=== PATIENT | male | born 1985 | race Caucasian/White ===

== ENCOUNTER 2017-05-28 20:03 | Inpatient (IN) | payer MEDICAID ==
[~2017-05-28] VITALS: Ht 167.6 cm; Wt 76.7 kg
[2017-05-28 20:17] VITALS: BP 155/95
--- NOTE | 2017-05-28 20:20 | NUR ---
32/M CAME IN W C/O EPIGASTRIC PAIN X 1 HOUR, NONRADIAITING,STATES PAIN STARTED AFTER A MEAL. BS ACTIVE X 4, ABD SOFT AND ROUND, +TENDERNESS TO EPIGASTRIC. REPORTS NAUSEA, DENIES VOMITING, FEVER/CHILLS. 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
[2017-05-28] MEDS ORDERED: ONDANSETRON 4 MG/2 ML VIAL IVP ONE (20:40)
[2017-05-28] MEDS ORDERED: NACL 0.9% 2,000 ML IV ONE (20:40)
[2017-05-28] MEDS ORDERED: MORPHINE SULFATE 4 MG/ML SYR IVP ONE (20:40)
[2017-05-28 21:06] LABS: BASOPHILS # (AUTO) 0.4 K/uL (0.00-0.22); EOSINOPHILS # (AUTO) 0.2 K/uL (0-0.4); HEMATOCRIT 45.6 % (36-52); HEMOGLOBIN 15.6 g/dL (12.0-18.0); LYMPHOCYTES # (AUTO) 2.3 K/uL (2.0-11.5); MEAN CORPUSCULAR HEMOGLOBIN 29 pg (27-31); MEAN CORPUSCULAR HGB CONC 34 g/dL (33-37); MEAN CORPUSCULAR VOLUME 84 fL (80-94); MONOCYTES # (AUTO) 1.1 K/uL (0.8-1.0); PLATELET COUNT (AUTO) 263 K/uL (140-450); RED BLOOD CELL COUNT(AUTO) 5.43 MIL/uL (4.20-6.10); RED CELL DISTRIBUTION WIDTH 11.8 % (11.6-13.7)
[2017-05-28] MEDS ORDERED: HYDROmorphone PFS 2 MG/ML SYR IVP ONE ×3 (21:25→23:30)
[2017-05-28] MEDS ORDERED: FAMOTIDINE 20 MG/2 ML VIAL IVP ONE (21:25)
[2017-05-28 21:28] LABS: ANION GAP 14.2 (8-16); CARBON DIOXIDE 28.5 mmol/L (21-32); POTASSIUM 3.7 mmol/L (3.5-5.1)
[2017-05-28 21:29] LABS: CREATININE 1.1 mg/dL (0.7-1.3); TOTAL BILIRUBIN 0.3 mg/dL (0.0-1.0)
[2017-05-28] MEDS ORDERED: NACL 0.9% 1,000 ML IV ONE (23:00)
[2017-05-28] MEDS ORDERED: cefTRIAXone 1,000 MG VIAL ONE (23:04)
[2017-05-28 23:07] LABS: APPEARANCE,URINE CLEAR (CLEAR); BILIRUBIN,URINE NEGATIVE (NEGATIVE); BLOOD, URINE NEGATIVE (NEGATIVE); COLOR,URINE YELLOW (YELLOW); LEUKOCYTE ESTERASE ,URINE NEGATIVE (NEGATIVE); NITRITE, URINE NEGATIVE (NEGATIVE); UGLUCOSE NEGATIVE (NEGATIVE)
[2017-05-28 23:19] LABS: RBC,URINE 0-5 (RARE) /HPF (0-5); WBC,URINE NONE SEEN /HPF (0-5)
--- NOTE | 2017-05-28 23:29 | NUR ---
Ultrasound at bedside.
[2017-05-28] MEDS: NACL 0.9% 1,000 ML IV SCH (23:33)
[2017-05-28] MEDS ORDERED: DOCUSATE SODIUM 100 MG GELCAP PO PRN (23:35)
[2017-05-28] MEDS ORDERED: ACETAMINOPHEN 325 MG TAB PO PRN (23:35)
[2017-05-28] MEDS ORDERED: ONDANSETRON 4 MG/2 ML VIAL IM/IVP PRN (23:35)
[2017-05-28] MEDS ORDERED: HYDROcodone/APAP 7.5/325 MG 1 TAB PO PRN (23:35)
[2017-05-28] MEDS ORDERED: ZOLPIDEM 5 MG TAB PO PRN (23:35)
[2017-05-28] MEDS ORDERED: MORPHINE SULFATE 2 MG/ML SYR IVP PRN (23:35)
[2017-05-28] MEDS ORDERED: LORazepam 0.5 MG TAB PO PRN (23:35)
--- NOTE | 2017-05-28 23:50 | NUR ---
Patient will be admitted to care of SYEDA DIANA. Admited to TELE. Will go to [id number]. Belongings list completed. BEDSIDE Report to ADELINE DIAZ. IV INFUSING.
[2017-05-28 23:56] VITALS: BP 131/80
--- NOTE | 2017-05-28 23:56 | NUR ---
RECEIVED PATIENT FROM ER. PATIENT A&OX4. PATIENT STATES PAIN IN UPPER EPIGASTRIC AREA. PATIENT PREVIOUSLY MEDICATED IN ER. WILL RE-ASSESS. PATIENT IS AMBULATORY. IV SITE PATENT AND INTACT. NO SIGNS OR SYMPTOMS OF ACUTE DISTRESS NOTED. PATIENT ORIENTED TO UNIT. SAFETY MEASURES ENSURED. CALL LIGHT WITHIN REACH. FAMILY AT BEDSIDE. WILL CONTINUE TO MONITOR.
[2017-05-29] VITALS (11 sets, daily range): BP systolic 100–142; BP diastolic 52–82
[2017-05-29] MEDS ORDERED: FAMO-90 PO (00:19)
[2017-05-29] MEDS ORDERED: HYDROmorphone PFS 2 MG/ML SYR IVP PRN ×3 (00:20→10:50)
[2017-05-29 00:27] LABS: CHOL/HDL RATIO 5.2 (1-4.5); FREE T4 (FREE THYROXINE) 0.95 ng/dL (0.76-1.46); MAGNESIUM 1.9 mg/dL (1.8-2.4); PHOSPHORUS 3.8 mg/dL (2.5-4.9); THYROID STIMULATING HORMONE 1.19 uIU/mL (0.34-3.74)
[2017-05-29 01:15] LABS: PROTHROMBIN TIME 10.5 secs (10.8-13.4)
--- NOTE | 2017-05-29 02:34 | NUR ---
PATIENT STATES PAIN 10/24. MEDICATED PATIENT. PATIENT VERBALIZED FEAR OF TOO MANY PAIN MEDICATION AND ADDICTION. PATIENT REQUESTED ONLY HALF THE DOSE ORDERED. KOBE GARCIA LVN WITNESSED 0.5ML WASTE. DR. BEARDEN NOTIFIED OF MEDICATION REQUEST. SAFETY MEASURES ENSURED. CALL LIGHT WITHIN REACH. WILL CONTINUE TO MONITOR.
--- NOTE | 2017-05-29 04:31 | NUR ---
PATIENT SHOWS CONCERN REGARDING POSSIBLE SURGERY AND PAIN. EDUCATION PROVIDED. PATIENT VERBALIZED UNDERSTANDING. PATIENT HAS ANXIETY BUT AFTER TALKING ABOUT THE PROCESS SHOWS SIGNS OF RELIEVED ANXIETY. NO ACUTE DISTRESS NOTED. SAFETY MEASURES ENSURED. WILL CONTINUE TO MONITOR.
--- NOTE | 2017-05-29 06:00 | NUR ---
PATIENT STATES ANXIETY REGARDING POSSIBILITY OF SURGERY. PATIENT STATES HE IS IN PAIN BUT DOES NOT WANT TO TAKE PAIN MEDICATION. PATIENT EDUCATED ON PAIN MANAGEMENT. PATIENT VERBALIZED UNDERSTANDING. PATIENT STILL DENIES PAIN MEDS. SAFETY MEASURES ENSURED. CALL LIGHT WITHIN REACH. WILL CONTINUE TO MONITOR.
--- NOTE | 2017-05-29 07:16 | NUR ---
ENDORSED PLAN OF CARE TO AM RN. PATIENT IN STABLE CONDITION.
--- NOTE | 2017-05-29 07:30 | NUR ---
ENDORSEMENT RECEIVED FROM PRACTICE SUPPORT SPECIALIST NURSE. PATIENT IS AWAKE, ALERT. RESPIRATION EVEN, UNLABOR ON ROOM AIR. SKIN DRY AND WARM. IV PATENT AND INTACT. COMPLAINED OF ABDOMINAL PAIN 12/24. WILL MEDICATE PER ORDER. PLAN OF CARE WAS DISCUSSED WITH THE PATIENT. BED AT LOW POSITION, SIDE RAILS UP. CALL LIGHT WITHIN REACH
[2017-05-29 07:43] LABS: BASOPHILS # (AUTO) 0.1 K/uL (0.00-0.22); BASOPHILS % (AUTO) 1.1 % (0.0-2.0); EOSINOPHILS % (AUTO) 0.2 % (0.0-4.0); HEMOGLOBIN 15.4 g/dL (12.0-18.0); LYMPHOCYTES # (AUTO) 1.3 K/uL (2.0-11.5); LYMPHOCYTES % (AUTO) 9.4 % (20.5-51.1); MEAN CORPUSCULAR HEMOGLOBIN 29 pg (27-31); MEAN CORPUSCULAR HGB CONC 34 g/dL (33-37); MEAN CORPUSCULAR VOLUME 84 fL (80-94); MONOCYTES # (AUTO) 1.3 K/uL (0.8-1.0); MONOCYTES % (AUTO) 9.6 % (1.7-9.3); NEUTROPHILS # (AUTO) 10.9 K/uL (1.8-7.7); NEUTROPHILS % (AUTO) 79.7 % (42.2-75.2); PLATELET COUNT (AUTO) 240 K/uL (140-450); RED BLOOD CELL COUNT(AUTO) 5.35 MIL/uL (4.20-6.10); RED CELL DISTRIBUTION WIDTH 11.6 % (11.6-13.7); WHITE BLOOD COUNT (AUTO) 13.6 K/uL (4.8-10.8)
[2017-05-29 08:12] LABS: CARBON DIOXIDE 26.1 mmol/L (21-32); CREATININE 0.9 mg/dL (0.7-1.3); POTASSIUM 4.1 mmol/L (3.5-5.1)
[2017-05-29 08:22] LABS: MAGNESIUM 1.7 mg/dL (1.8-2.4); PHOSPHORUS 3.9 mg/dL (2.5-4.9)
--- NOTE | 2017-05-29 08:40 | NUR ---
PROCEDURE AND ANESTHESIA CONSENT WAS OBTAINED AT BEDSIDE BY THE PATIENT. FAMILY AT BEDSIDE
[2017-05-29] MEDS: FAMOTIDINE 20 MG TAB PO SCH (08:45)
[2017-05-29] MEDS: ATORVASTATIN 20 MG TAB PO SCH (08:45)
[2017-05-29] MEDS: LACTOBACILLUS RHAMNOSUS GG 1 EACH CAP PO SCH (08:46)
--- NOTE | 2017-05-29 09:15 | NUR ---
PATIENT IS NPO, STATED HE IS VERY UPSET WITH THE DELAY IN THE PROCEDURE, REQUESTED TO SPEAK WITH THE MD. DR. QUAN WAS MADE AWARE
[2017-05-29] MEDS: NACL 0.9% 1,000 ML IV SCH ×3 (09:19→16:57)
--- NOTE | 2017-05-29 09:50 | NUR ---
PATIENT HAS BEEN SCREENED AND CATEGORIZED MODERATE RISK. PATIENT WILL BE SEEN WITHIN 3-5 DAYS OF ADMISSION. 05/31/17 TO 06/02/[address], [facility]
--- NOTE | 2017-05-29 10:26 | NUR ---
PATIENT IS AWAKE, ALERT. RESPIRATION EVEN, UNLABOR ON ROOM AIR. COMPLAIN OF ABDOMINAL PAIN4/10. MEDICATION WAS GIVEN PER ORDER. CALL LIGHT WITHIN REACH
[2017-05-29] MEDS ORDERED: ATORVASTATIN 20 MG TAB PO SCH (10:45)
--- NOTE | 2017-05-29 11:30 | NUR ---
PATIENT IS SLEEPING COMFORTABLY. RESPIRATION EVEN, UNLABOR ON ROOM AIR. DENIED PAIN AT THIS TIME. CALL LIGHT WITHIN REACH
--- NOTE | 2017-05-29 14:10 | NUR ---
PATIENT IS AWAKE, ALERT. RESPIRATION EVEN, UNLABOR ON ROOM AIR. DENIED PAIN AT THIS TIME. NO DISTRESS NOTED AT THIS TIME. CALL LIGHT WITHIN REACH
--- NOTE | 2017-05-29 14:30 | NUR ---
PATIENT IS TRANSFERRED TO OR. PATIENT IS STABLE AT THIS TIME
[2017-05-29] MEDS ORDERED: BUPIVACAINE-MPF 0.25% 30 ML VIAL INJ ONE (15:12)
[2017-05-29] MEDS ORDERED: HYDROmorphone PFS 2 MG/ML SYR ONE ×2 (15:28→17:13)
[2017-05-29] MEDS ORDERED: fentaNYL 0.05 MG/ML VIAL ONE (15:28)
[2017-05-29] MEDS ORDERED: KETOROLAC 30 MG/ML VIAL IVP ONE (15:29)
[2017-05-29] MEDS ORDERED: ONDANSETRON 4 MG/2 ML VIAL IVP ONE (15:29)
[2017-05-29] MEDS ORDERED: DESFLURANE 240 ML BTL INH ONE (15:29)
[2017-05-29] MEDS ORDERED: PROPOFOL 200 MG/20 ML VIAL IV ONE (15:29)
[2017-05-29] MEDS ORDERED: fentaNYL 0.05 MG/ML VIAL IVP ONE (15:29)
[2017-05-29] MEDS ORDERED: HYDROmorphone PFS 2 MG/ML SYR IVP ONE (15:29)
[2017-05-29] MEDS ORDERED: DEXAMETHASONE 4 MG/ML VIAL IVP ONE (15:29)
[2017-05-29] MEDS ORDERED: NEOSTIGMINE 1:1000 10 MG/10 ML VIAL IM ONE (15:29)
[2017-05-29] MEDS ORDERED: ROCURONIUM 50 MG/5 ML VIAL IV ONE (15:29)
[2017-05-29] MEDS ORDERED: GLYCOPYRROLATE 0.2 MG/ML VIAL IV ONE (15:29)
[2017-05-29] MEDS ORDERED: ONDANSETRON 4 MG/2 ML VIAL IVP PRN (15:55)
[2017-05-29] MEDS: HYDROmorphone PFS 2 MG/ML SYR IVP PRN ×4 (17:13→17:43)
--- NOTE | 2017-05-29 18:00 | NUR ---
PATIENT IS TRANSFERRED BACK TO THE UNIT. REPORT WAS GIVEN AT BEDSIDE. VS WAS TAKEN. PATIENT IS STABLE AT THIS TIME. PATIENT IS AWAKE, DROWSY. CALL LIGHT WITHIN REACH
--- NOTE | 2017-05-29 18:30 | NUR ---
PATIENT IS STILL DROWSY, COMPLAINED OF SORE THROAT. VS IS STABLE.
--- NOTE | 2017-05-29 19:15 | NUR ---
ENDORSEMENT GIVEN TO THE IT CORPORATE RECRUITER NURSE. PATIENT IS STABLE AT THIS TIME
--- NOTE | 2017-05-29 19:30 | NUR ---
Patient's Plan of Care was discussed and reviewed with DATA ANALYTICS SPECIALIST: KOBE GARCIA
--- NOTE | 2017-05-29 19:45 | NUR ---
PATIENT IS CURRENTLY RESTING AWAKE DROWSY PATIENT STATES," I FEEL VERY ANXIOUS AND RESTLESS." PATIENT IS ASKING IF HE CAN TURN AND REPOSITION I TOLD HIM HE CAN HE CAN TOLERATE AND VITALS SIGNS ARE CURRENTLY STABLE O2SAT 95% ON ROOM AIR AT THIS TIME ABDOMINAL INCISION X3 TO ABDOMEN AND HAS X1 MONY DRAINAGE AT THIS TIME.CALL LIGHT WITHIN REACH SIGNIFICANT OTHER AT BEDSIDE WITH THE PATIENT. I INFORMED SIGNIFICANT OTHER OF VISITING HOURS AND SHE ASKED IF SHE COULD STAY THE NIGHT AND I TOLD HER SHE CAN'T BECAUSE THERE IS ANOTHER MAN IN THE OTHER BED AND IT WOULD BE BETTER FOR HER TO GET SOME REST AND MAYBE COME BACK IN THE MORNING.SIGNFICANT OTHER SAID IF SHE COULD STAY LONGER WITH THE PATIENT I LET HER STAY LONGER BUT SHE KNOWS SHE CANNOT SPEND THE NIGHT AND VERBALIZES UNDERSTANDING.
--- NOTE | 2017-05-29 22:00 | NUR ---
RESIDENT DEISI BENNETT WAS INFORMED THAT PATIENT'S MAG LEVEL THIS MORNING WAS 1.7 AND HE WAS INFORMED AND ALSO INFORMED THAT PATIENT HAS NO LABS ORDERED FOR THIS MORNING.RESIDENT BENNETT SAID HE WILL TAKE A LOOK AND PUT ORDERS IN.
--- NOTE | 2017-05-29 22:30 | NUR ---
PATIENT IS CURRENTLY COMPLAINING OF INSOMNIA AND UNABLE TO SLEEP I OFFERED A SLEEPING PILL AND PATIENT AGREED TO TAKE ONE AND I MEDICATED THE PATIENT WITH AMBIEN ORDERED.WILL CONTINUE TO MONITOR.CALL LIGHT WITHIN REACH.
[2017-05-30] VITALS: BP 111/68
[2017-05-30] MEDS: HYDROcodone/APAP 10/325 MG 1 TAB TAB PO PRN ×4 (00:08→20:38)
--- NOTE | 2017-05-30 00:08 | NUR ---
PATIENT IS CURRENTLY RESTING IN BED PATIENT STATES,"IM STILL TRYING TO SLEEP." PATIENT VOIDED 450ML OF YELLOW COLOR URINE IN URINAL. PATIENT COMPLAINS OF MODERATE ABD INCISIONAL PAIN AND WAS MEDICATED ORDERED WITH NORCO. PATIENT CONTINUES TO WEAR HIS SCD'S TO BOTH LOWER EXTREMITIES.PATIENT REQUESTED FOR WARM BLANKET AND IT WAS GIVEN TO THE PATIENT.VITALS SIGNS HAVE BEEN TAKEN AND THEY REMAIN STABLE. CALL LIGHT WITHIN REACH.
[2017-05-30] MEDS: NACL 0.9% 1,000 ML IV SCH ×3 (00:39→14:50)
--- NOTE | 2017-05-30 01:45 | NUR ---
I MADE ROUNDS AND PATIENT IS CURRENTLY AWAKE HIS ON A FULL LIQUID DIET AND IS TOLERATING HIS DIET WELL NO N/V NOTED. PATIENT CONTINUES TO VOID WELL IN THE URINAL I EMPTIED ANOTHER 500ML OF YELLOW COLOR URINE.IVF INFUSING WELL IV SITE PATENT.CALL LIGHT WITHIN REACH.
--- NOTE | 2017-05-30 03:00 | NUR ---
PATIENT SLEEPING WILL CONTINUE TO MONITOR.
--- NOTE | 2017-05-30 04:08 | NUR ---
PATIENT IS CURRENTLY RESTING IN BED DENIES PAIN IVF INFUSING WELL IV SITE PATENT.VITALS SIGNS CONTINUE TO BE STABLE. NEEDS MET WILL CONTINUE TO MONITOR.
[2017-05-30 04:19] VITALS: BP 108/66
--- NOTE | 2017-05-30 04:40 | NUR ---
PATIENT WAS EDUCATED ON HOW TO USE THE INCENTIVE SPIROMETER AND PATIENT VERBALIZES UNDERSTANDING AND RETURN DEMONSTRATION DONE.I ASKED THE PATIENT IF HIS IN PAIN OR WANTS ANY PAIN MEDICATION PATIENT STATES,"NO, IM FINE AT THIS TIME."CALL LIGHT WITHN REACH.
--- NOTE | 2017-05-30 04:45 | NUR ---
PATIENT STABLE AT THIS TIME I EMPTIED 50ML OF SANGUINOUS BLOODY DRAINAGE FROM MONY.
--- NOTE | 2017-05-30 05:06 | NUR ---
I REMINDED RESIDENT DONALD ABOUT THE PATIENT'S MAG LEVEL 1.7 HE SAID HE WILL ENDORSE TO THE NEXT MORNING CREW THEY WILL TAKE CARE OF IT.
--- NOTE | 2017-05-30 06:26 | NUR ---
PATIENT RESTING IN BED TALKING TO HIS ROOM MATE PATIENT DOING WELL. IVF INFUSING WELL IV SITE PATENT PATIENT TOLERATED HIS DIET WELL NO N/V DURING THE NIGHT.MONY DRAIN WAS EMPTIED I EMPTIED 50ML OF SANGUINOUS DRAINAGE.PATIENT CONTINUES TO WEAR HIS SCD'S.CALL LIGHT WITHIN REACH.
--- NOTE | 2017-05-30 07:13 | NUR ---
ASSUMED CONTINUITY OF CARE. NO SIGNS AND SYMPTOMS OF ACUTE DISTRESS NOTED. INITIAL ASSESSMENT DONE. PT. ON BEDSIDE. EXPLAINED DIAGNOSIS, PLAN OF CARE, POST-OP CARE, PAIN MANAGEMENT TEACHING, USE OF CALL LIGHT/BED/TV/BATHROOM. VERBALIZED UNDERSTANDING. CALL LIGHT WITHIN REACH.
--- NOTE | 2017-05-30 07:13 | NUR ---
PATIENT STABLE REPORT ENDORSED TO MERCED BAL.
[2017-05-30 07:25] LABS: BASOPHILS # (AUTO) 0.1 K/uL (0.00-0.22); BASOPHILS % (AUTO) 0.8 % (0.0-2.0); EOSINOPHILS % (AUTO) 0.2 % (0.0-4.0); HEMATOCRIT 42.8 % (36-52); HEMOGLOBIN 14.4 g/dL (12.0-18.0); LYMPHOCYTES # (AUTO) 1.3 K/uL (2.0-11.5); LYMPHOCYTES % (AUTO) 12.4 % (20.5-51.1); MEAN CORPUSCULAR HEMOGLOBIN 29 pg (27-31); MEAN CORPUSCULAR HGB CONC 34 g/dL (33-37); MEAN CORPUSCULAR VOLUME 85 fL (80-94); MONOCYTES # (AUTO) 0.8 K/uL (0.8-1.0); MONOCYTES % (AUTO) 7.9 % (1.7-9.3); NEUTROPHILS # (AUTO) 7.9 K/uL (1.8-7.7); NEUTROPHILS % (AUTO) 78.7 % (42.2-75.2); PLATELET COUNT (AUTO) 252 K/uL (140-450); RED BLOOD CELL COUNT(AUTO) 5.06 MIL/uL (4.20-6.10); RED CELL DISTRIBUTION WIDTH 12.1 % (11.6-13.7); WHITE BLOOD COUNT (AUTO) 10.1 K/uL (4.8-10.8)
[2017-05-30 07:49] LABS: ANION GAP 14.3 (8-16); CARBON DIOXIDE 27.5 mmol/L (21-32); CREATININE 0.9 mg/dL (0.7-1.3); POTASSIUM 3.8 mmol/L (3.5-5.1)
[2017-05-30 07:59] LABS: MAGNESIUM 1.9 mg/dL (1.8-2.4); PHOSPHORUS 3.5 mg/dL (2.5-4.9)
[2017-05-30 08:00] VITALS: BP 98/55
[2017-05-30] MEDS: FAMOTIDINE 20 MG TAB PO SCH (09:02)
[2017-05-30] MEDS: LACTOBACILLUS RHAMNOSUS GG 1 EACH CAP PO SCH (09:02)
[2017-05-30] MEDS: ATORVASTATIN 20 MG TAB PO SCH (09:02)
--- NOTE | 2017-05-30 09:20 | NUR ---
AMBULATES ON HALLWAY WITH ASSISTANCE FROM PT. . TOLERATED WELL. NO C/O PAIN.
[2017-05-30] MEDS ORDERED: MORPHINE SULFATE 2 MG/ML SYR IVP PRN (09:30)
[2017-05-30 12:00] VITALS: BP 108/62
--- NOTE | 2017-05-30 13:20 | NUR ---
DR. DAVIS CAME, WENT INSIDE PT. ROOM AND D/C PT. MONY DRAIN.
[2017-05-30 15:07] LABS: T4 (THYROXINE) 7.5 ug/dL (4.5-12.0)
--- NOTE | 2017-05-30 19:13 | NUR ---
BEDSIDE REPORT GIVEN TO KOBE NEWMAN. IVF INFUSING WELL. IN STABLE CONDITION.
--- NOTE | 2017-05-30 19:14 | NUR ---
PATIENT IS AMBULATING IN ROOM HIS AWAKE ALERT ORIENTED.IVF INFUSING WELL IV SITE PATENT PATIENT ATE GOOD. PATIENT WANTS TO HAVE A BOWEL MOVEMENT I GAVE HIM WARM PRUNE JUICE. PATIENT CALM AND COOPERATIVE VERBALIZES UNDERSTANDING TO KEEP WALKING AND USING THE INCENTIVE SPIROMETER.CALL LIGHT WITHIN REACH.
--- NOTE | 2017-05-30 19:20 | NUR ---
Patient's Plan of Care was discussed and reviewed with CHARTERED FINANCIAL ANALYST: KOBE GARCIA
[2017-05-30 20:09] VITALS: BP 109/58
--- NOTE | 2017-05-30 21:30 | NUR ---
PATIENT STABLE RESTING IN BED CALL LIGHT WITHIN REACH.
--- NOTE | 2017-05-30 23:15 | NUR ---
PATIENT SLEEPING IN NO DISTRESS WILL CONTINUE TO MONITOR.
[2017-05-31] VITALS: BP 93/60
--- NOTE | 2017-05-31 03:05 | NUR ---
PATIENT STABLE SLEEPING IN BED.IVF INFUSING WELL IV SITE PATENT.
--- NOTE | 2017-05-31 03:10 | NUR ---
PATIENT WALKING UP AND DOWN THE HALLWAY GOT HIS BED LINEN CHANGED BY ELAINE LOPEZ.
[2017-05-31] MEDS: HYDROcodone/APAP 10/325 MG 1 TAB TAB PO PRN (03:16)
--- NOTE | 2017-05-31 03:20 | NUR ---
PATIENT COMPLAINS OF MODERATE PAIN TO ABDOMEN PATIENT WAS MEDICATED WITH NORCO PATIENT ALSO REQUESTED TO HAVE SCD'S PUT ON AND I PUT THEM ON. NEEDS MET CALL LIGHT WITHIN REACH.
--- NOTE | 2017-05-31 05:55 | NUR ---
PATIENT SLEEPING IN BED AT THIS TIME NO PAIN OR DISCOMFORT NOTED.IVF INFUSING WELL IV SITE PATENT.CALL LIGHT WITHIN REACH.
--- NOTE | 2017-05-31 07:10 | NUR ---
PATIENT STABLE REPORT ENDORSED TO JOE JEAN.
--- NOTE | 2017-05-31 07:30 | NUR ---
RECEIVED PT REPORT FROM NETWORK COORDINATOR NURSE. PATIENT IS AWAKE, ALERT, OX4. NO S/S OF ACUTE DISTRESS ON ROOM AIR. DENIES PAIN AT THIS TIME. IV NOTED TO THE LEFT AC #18, PATENT, INTACT AND INFUSING WELL. FOUR DRESSINGS NOTED ON THE ABD. DRESSINGS ARE CLEAN, DRY, AND INTACT. PLAN OF CARE WAS DISCUSSED WITH THE PATIENT. BED AT LOW POSITION, SIDE RAILS UP. CALL LIGHT WITHIN REACH, WILL CONTINUE TO MONITOR.
[2017-05-31 07:45] LABS: BASOPHILS # (AUTO) 0.3 K/uL (0.00-0.22); BASOPHILS % (AUTO) 4.1 % (0.0-2.0); EOSINOPHILS # (AUTO) 0.1 K/uL (0-0.4); EOSINOPHILS % (AUTO) 1.8 % (0.0-4.0); HEMATOCRIT 38.7 % (36-52); HEMOGLOBIN 13.3 g/dL (12.0-18.0); LYMPHOCYTES # (AUTO) 2.4 K/uL (2.0-11.5); LYMPHOCYTES % (AUTO) 31.3 % (20.5-51.1); MEAN CORPUSCULAR HEMOGLOBIN 29 pg (27-31); MEAN CORPUSCULAR HGB CONC 34 g/dL (33-37); MEAN CORPUSCULAR VOLUME 85 fL (80-94); MONOCYTES # (AUTO) 0.8 K/uL (0.8-1.0); MONOCYTES % (AUTO) 10.1 % (1.7-9.3); NEUTROPHILS # (AUTO) 3.9 K/uL (1.8-7.7); NEUTROPHILS % (AUTO) 52.7 % (42.2-75.2); PLATELET COUNT (AUTO) 215 K/uL (140-450); RED BLOOD CELL COUNT(AUTO) 4.56 MIL/uL (4.20-6.10); RED CELL DISTRIBUTION WIDTH 11.8 % (11.6-13.7); WHITE BLOOD COUNT (AUTO) 7.5 K/uL (4.8-10.8)
[2017-05-31 08:00] VITALS: BP 108/58
[2017-05-31 08:07] LABS: PHOSPHORUS 3.5 mg/dL (2.5-4.9)
[2017-05-31 08:10] LABS: ALBUMIN 3.1 g/dL (3.4-5.0); ANION GAP 11.4 (8-16); CARBON DIOXIDE 31.6 mmol/L (21-32); CREATININE 0.9 mg/dL (0.7-1.3); TOTAL BILIRUBIN 0.4 mg/dL (0.0-1.0)
[2017-05-31] MEDS: LACTOBACILLUS RHAMNOSUS GG 1 EACH CAP PO SCH (10:01)
[2017-05-31] MEDS: ATORVASTATIN 20 MG TAB PO SCH (10:02)
[2017-05-31] MEDS: FAMOTIDINE 20 MG TAB PO SCH (10:02)
[2017-05-31] MEDS ORDERED: AMOX-1000 PO (10:34)
[2017-05-31] MEDS ORDERED: ACET-2869 PO (10:43)
[2017-05-31] MEDS ORDERED: LACT1.4C PO (10:43)
[2017-05-31] MEDS ORDERED: DOCU-299 PO (10:43)
[2017-05-31] MEDS ORDERED: LORA10TA19 PO (11:16)
--- NOTE | 2017-05-31 12:00 | NUR ---
PT ATE LUNCH. NO S/S OF ACUTE DISTRESS. PT STATED HE IS ABLE TO PASS GAS BUT NO BM YET. ENCOURAGED PT TO AMB MORE.
--- NOTE | 2017-05-31 13:00 | NUR ---
PT HAS BEEN SEEN BY DR MOROCHO.
--- NOTE | 2017-05-31 14:30 | NUR ---
WOUND CLEANED WITH NS, DRESSING CHANGED. PT TOLERATED WELL. DRESSING SUPPLIES PROVIDED FOR HOME USE AND WOUND CARE TEACHING GIVEN. PT VERBALIZED UNDERSTANDING.
--- NOTE | 2017-05-31 15:00 | NUR ---
PT DISCHARGED PER MD ORDER. PRESCRIPTION, MD APPOINTMENTS AND DISCHARGE INSTRUCTIONS GIVEN. PT VERBALIZED UNDERSTANDING. IV CATH DC'ED, TIP INTACT, AND PRESSURE APPLIED. IS TEACHING GIVEN, PT RETURNED DEMONSTRATION. WHEELCHAIR PROVIDED TO PT. PT IS IN STABLE CONDITION. PT HAS TAKEN ALL HIS BELONGINGS.
== END 2017-05-31 15:00 | disposition home or self-care (01) | DRG 263 ==
LOC: MED 20:03 → MTU 23:34 → UNDOADMIN 23:34 → MTU 23:50
PROVIDERS: ADMIT Family Medicine Sports Medicine; ATTEND Family Medicine Sports Medicine
PROC: 0FT44ZZ Resection of Gallbladder, Percutaneous Endoscopic Approach (ICD-10-PCS; principal; 2017-05-29 15:00)
DX: K80.00 Calculus of gallbladder with acute cholecystitis without obstruction (principal); N17.0 Acute kidney failure with tubular necrosis; E44.0 Moderate protein-calorie malnutrition; E83.42 Hypomagnesemia; K76.0 Fatty (change of) liver, not elsewhere classified; K21.9 Gastro-esophageal reflux disease without esophagitis; E11.9 Type 2 diabetes mellitus without complications; E78.5 Hyperlipidemia, unspecified; Z87.442 Personal history of urinary calculi
CPT/HCPCS: 36415; 71045; 76705; 80048; 80053; 81001; 82150; 82374; 83036; 83690; 83735; 83880; 84100; 84436; 84439; 84443; 84479; 84484; 85025; 85610; 85730; 86886; 86900; 86901; 87081; 96361; 96365; 96375; 96376; 99285; J0696; J1100; J1170; J1885; J2270; J2405; J2704; J2710; J3010; J3490; J7030; J7060; Q0092; Q9967

== ENCOUNTER 2018-08-09 14:35 | Emergency (ER) | payer MEDICAID ==
[~2018-08-09] VITALS: Ht 167.6 cm; Wt 80.7 kg
[~2018-08-09 14:35] MED LIST: AMOX-1000 PO; DOCU-299 PO; FAMO-90 PO; HYDR-5122 PO; LACT1.4C PO; LORA10TA19 PO
[2018-08-09 15:03] VITALS: BP 127/70
--- NOTE | 2018-08-09 17:11 | NUR ---
PT AMBULATES TO BED 7
--- NOTE | 2018-08-09 17:17 | NUR ---
33 YO M BIB SELF PRESENTS TO ED WITH CO SUDDEN ONSET DIZZINESS AND BAH THAT COME AND GO SINCE WEDNESDAY. PT REPORTS 7/10 PAIN TO THE PARIETAL REGION. PT ALSO REPORTS THAT HE EXPERIENCES DOUBLE VISION AT TIMES WHILE HE IS DRIVING. DENIES NV. PT STATES HE HAS NOT FELL OR HAD ANY LOC. -- PMH: DENIES -- RX: DENIES PT POSITIONED FOR COMFORT. HOB ELEVATED. SIDE RAIL UP X 1. BED LOWEST POSITION. VSS. NO APPARENT DISTRESS AT THIS TIME.
[2018-08-09] MEDS ORDERED: ACETAMINOPHEN 325 MG TAB PO ONE (17:25)
--- NOTE | 2018-08-09 17:36 | NUR ---
pt left for ct via wheelchair per tech.
[2018-08-09 18:13] VITALS: BP 127/70
== END 2018-08-09 18:14 | disposition home or self-care (01) ==
LOC: MED 14:35
DX: R51 Headache (principal); R42 Dizziness and giddiness; Z90.49 Acquired absence of other specified parts of digestive tract; Z79.2 Long term (current) use of antibiotics; Z79.891 Long term (current) use of opiate analgesic; Z79.899 Other long term (current) drug therapy
CPT/HCPCS: 70450; 82948; 99284

== ENCOUNTER 2019-11-06 21:28 | Emergency (ER) | payer MEDICAID, SELFPAY ==
[~2019-11-06] VITALS: Ht 162.6 cm; Wt 74.8 kg
[2019-11-06 21:37] VITALS: BP 142/96
--- NOTE | 2019-11-06 21:39 | NUR ---
PT TAKEN TO OF TENT
--- NOTE | 2019-11-06 21:41 | NUR ---
MADE AWARE PT IN TENT
--- NOTE | 2019-11-06 21:47 | NUR ---
Dr. Casarez examining patient.
[2019-11-06] MEDS ORDERED: KETOROLAC 60 MG/2 ML VIAL IM ONE (22:00)
--- NOTE | 2019-11-06 22:10 | NUR ---
COVID SWAB COLLECTED AND GIVEN TO LAB FOR PROCESSING.
--- NOTE | 2019-11-06 22:20 | NUR ---
pt reports relief of pain with toradol injection--pain rating 5/10.
--- NOTE | 2019-11-06 22:38 | NUR ---
PT TAKEN TO CT
--- NOTE | 2019-11-06 22:46 | NUR ---
PT RETURN FROM CT
[2019-11-06 23:39] VITALS: BP 138/76
--- NOTE | 2019-11-09 09:36 | NUR ---
LAB CALLED WITH POSITIVE COVID RESULTS. REQUESTED COPY OF REPORT TO SEND TO INFECTION CONTROL. SPOKE TO MARGARITO IN THE LAB.
== END 2019-11-06 23:37 | disposition home or self-care (01) ==
LOC: EEVIPCON 21:28 → MED 21:28
DX: R50.9 Fever, unspecified (principal); Z20.828 Contact with and (suspected) exposure to other viral communicable diseases; R53.1 Weakness; R68.83 Chills (without fever); Z90.49 Acquired absence of other specified parts of digestive tract; Z79.899 Other long term (current) drug therapy
CPT/HCPCS: 70450; 96372; 99284; J1885; U0003

== ENCOUNTER 2022-10-11 22:08 | Emergency (ER) | payer MEDICAID ==
[~2022-10-11] VITALS: Ht 160 cm; Wt 81.6 kg
[2022-10-11 22:15] VITALS: BP 133/91
--- NOTE | 2022-10-11 22:59 | NUR ---
Dr. Anna examining patient.
[2022-10-11] MEDS ORDERED: KETOROLAC 30 MG/ML VIAL IM ONE (23:05)
[2022-10-11] MEDS ORDERED: KETOROLAC 30 MG/ML VIAL ONE (23:08)
--- NOTE | 2022-10-11 23:18 | NUR ---
COVID AND FLU SWAB COLLECTED AND SENT TO LAB
--- NOTE | 2022-10-12 00:15 | NUR ---
Patient discharged with v/s stable. Written and verbal after care instructions given and explained. Patient verbalized understanding. Ambulatory with steady gait. All questions addressed prior to discharge. Advised to follow up with PMD.
== END 2022-10-12 00:15 | disposition home or self-care (01) ==
LOC: MED 22:08
DX: R50.9 Fever, unspecified (principal); Z20.822 Contact with and (suspected) exposure to COVID-19; R51.9 Headache, unspecified; Z79.899 Other long term (current) drug therapy
CPT/HCPCS: 87426; 87804; 96372; 99283; J1885

== ENCOUNTER 2024-01-14 15:07 | Emergency (ER) | payer MEDICAID ==
[~2024-01-14] VITALS: Ht 165.1 cm; Wt 79.8 kg
[2024-01-14 15:27] VITALS: BP 115/73; PULSE 66; RESP 18; TEMP 98.3; O2SAT 98
--- NOTE | 2024-01-14 15:35 | NUR ---
to bed 7.
[2024-01-14 15:53] VITALS: O2SAT 98
--- NOTE | 2024-01-14 15:53 | NUR ---
38 y/o male bib self with c/o chest pain x2 weeks. Per patient pain is intermittent. Patient reports non-radiating pain. Patient denies any SOB, nausea, vomiting or medication for symptoms. Patient reports a feeling of his throat closing. Patient's oxygen is at 98% on room air. Patient also reports ringing to ears aand trouble sleeping for 5 years. Medical History: Hyperlipidemia, Pre-DM, Sleep Apnea NKDA
--- NOTE | 2024-01-14 16:08 | NUR ---
Patient being evaluated by physician at bedside.
[2024-01-14 16:14] LABS: BASOPHILS % (AUTO) 0.5 % (0.0-2.0); EOSINOPHILS # (AUTO) 0.1 K/uL (0-0.4); HEMATOCRIT 43.7 % (36-52); HEMOGLOBIN 15.2 g/dL (12.0-18.0); LYMPHOCYTES # (AUTO) 2.5 K/uL (2.0-11.5); LYMPHOCYTES % (AUTO) 44.1 % (20.5-51.1); MEAN CORPUSCULAR HEMOGLOBIN 29 pg (27-31); MEAN CORPUSCULAR HGB CONC 35 g/dL (33-37); MEAN CORPUSCULAR VOLUME 84.1 fL (80-94); MONOCYTES # (AUTO) 0.6 K/uL (0.8-1.0); MONOCYTES % (AUTO) 11.4 % (1.7-9.3); NEUTROPHILS # (AUTO) 2.4 K/uL (1.8-7.7); PLATELET COUNT (AUTO) 198 K/uL (140-450); RED CELL DISTRIBUTION WIDTH 12.9 % (11.6-13.7); WHITE BLOOD COUNT (AUTO) 5.7 K/uL (4.8-10.8)
[2024-01-14 16:21] LABS: CALCIUM 9.2 mg/dL (8.5-10.1); CARBON DIOXIDE 30.1 mmol/L (21-32); POTASSIUM 4.1 mmol/L (3.5-5.1)
[2024-01-14 17:52] VITALS: BP 100/56; PULSE 64; RESP 12; TEMP 98; O2SAT 98
--- NOTE | 2024-01-14 17:58 | NUR ---
Patient discharged with v/s stable. Written and verbal after care instructions given. Patient verbalized understanding. Ambulatory with steady gait. All questions addressed prior to discharge. Advised to follow up with PMD.
--- NOTE | 2024-01-14 18:06 | NUR ---
Chart checked and completed. The patient's care was reviewed and supervised by ANUSHKA LACKEY RN.
== END 2024-01-14 17:58 | disposition home or self-care (01) ==
LOC: MED 15:07
DX: R07.9 Chest pain, unspecified (principal); R06.02 Shortness of breath; F41.9 Anxiety disorder, unspecified; G47.30 Sleep apnea, unspecified; Z79.899 Other long term (current) drug therapy
CPT/HCPCS: 36415; 71045; 80048; 84484; 85025; 93005; 99285; Q0092